=== PATIENT | male | born 1965 | race Caucasian/White ===

== ENCOUNTER 2017-11-24 21:13 | Emergency (ER) | payer SELFPAY ==
[~2017-11-24] VITALS: Ht 172.7 cm; Wt 113.4 kg
[2017-11-24 21:15] VITALS: BP 145/112
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
--- NOTE | 2017-11-24 21:20 | NUR ---
PATIENT BIB ALS TO ER BED 3.
[2017-11-24] MEDS ORDERED: IBUPROFEN 600 MG TAB PO ONE (22:25)
--- NOTE | 2017-11-25 00:20 | NUR ---
AWAITING DISCHARGE PAPERWORK FROM DR ANDERSEN
[2017-11-25 01:00] VITALS: BP 141/98
--- NOTE | 2017-11-25 01:00 | NUR ---
Patient discharged with v/s stable. Written and verbal after care instructions given and explained. Patient alert, oriented and verbalized understanding of instructions. Ambulatory with steady gait. All questions addressed prior to discharge. ID band removed. Patient advised to follow up with PMD. Rx of Ibuprofen and Flexeril given. Patient educated on indication of medication including possible reaction and side effects. Opportunity to ask questions provided and answered.
== END 2017-11-25 01:00 | disposition home or self-care (01) ==
LOC: MED 21:13
DX: S40.012A Contusion of left shoulder, initial encounter (principal); S00.93XA Contusion of unspecified part of head, initial encounter; S10.93XA Contusion of unspecified part of neck, initial encounter; S30.0XXA Contusion of lower back and pelvis, initial encounter; E11.9 Type 2 diabetes mellitus without complications; I10 Essential (primary) hypertension; V43.52XA Car driver injured in collision with other type car in traffic accident, initial encounter; Y93.89 Activity, other specified; Y92.89 Other specified places as the place of occurrence of the external cause; Y99.8 Other external cause status
CPT/HCPCS: 70450; 71045; 72125; 73000; 99284

== ENCOUNTER 2021-03-24 21:13 | Observation (INO) | payer OTHER, SELFPAY ==
[~2021-03-24] VITALS: Ht 167.6 cm; Wt 115.7 kg
[2021-03-24 21:47] VITALS: BP 156/100
--- NOTE | 2021-03-24 22:12 | NUR ---
PT TAKEN TO BED 12.
--- NOTE | 2021-03-24 22:32 | NUR ---
55 Y/O MALE BIB SELF, C/O ANURIA. PATIENT PRESENTS TO ED WITH PAIN TO BLADDER, RADIATING TO BACK AND HEADACHE. PT STATES FOR THE PAST 6HRS HE HAS NOT BEEN ABLE TO URINATE, ONLY A FEW DROPS OF BLOOD. HE ALSO STATES HE FEELS TEURGENCY TO URINATE BUT IS UNSUCCESSFUL. PT DENIES HX OF SAME OR TRAUMA. DENIES N/V/D; SKIN IS PINK/WARM/DRY; AAOX4 WITH EVEN AND STEADY GAIT; LUNGS CLEAR BL; HR EVEN AND REGULAR; PT DENIES ANY FEVER, CP, SOB, OR COUGH AT THIS TIME; PATIENT STATES PAIN OF 10/10 AT THIS TIME; VSS; PATIENT POSITIONED FOR COMFORT; HOB ELEVATED; BEDRAILS UP X1; BED DOWN. ER MD MADE AWARE OF PT STATUS. KINYARWANDA SPEAKER. HX: DM2, KIDNEY STONES, HLD NKA MEDS FOR MED HX BUT CANNOT REMEMBER THE NAMES.
[2021-03-25] MEDS ORDERED: MORPHINE SULFATE 2 MG/ML SYR ONE (00:13)
--- NOTE | 2021-03-25 00:30 | NUR ---
LABS AT BEDSIDE
[2021-03-25] MEDS ORDERED: cefTRIAXone 1,000 MG VIAL ONE (00:44)
[2021-03-25 00:48] LABS: BASOPHILS % (AUTO) 0.5 % (0.0-2.0); EOSINOPHILS # (AUTO) 0.1 K/uL (0-0.4); EOSINOPHILS % (AUTO) 1.3 % (0.0-4.0); HEMATOCRIT 40.5 % (36-52); HEMOGLOBIN 13.7 g/dL (12.0-18.0); LYMPHOCYTES # (AUTO) 1.5 K/uL (2.0-11.5); LYMPHOCYTES % (AUTO) 18.5 % (20.5-51.1); MEAN CORPUSCULAR HEMOGLOBIN 27 pg (27-31); MEAN CORPUSCULAR HGB CONC 34 g/dL (33-37); MEAN CORPUSCULAR VOLUME 80.2 fL (80-94); MONOCYTES # (AUTO) 0.7 K/uL (0.8-1.0); MONOCYTES % (AUTO) 8.5 % (1.7-9.3); NEUTROPHILS # (AUTO) 5.8 K/uL (1.8-7.7); NEUTROPHILS % (AUTO) 71.2 % (42.2-75.2); PLATELET COUNT (AUTO) 197 K/uL (140-450); RED BLOOD CELL COUNT(AUTO) 5.05 MIL/uL (4.20-6.10); RED CELL DISTRIBUTION WIDTH 15.3 % (11.6-13.7); WHITE BLOOD COUNT (AUTO) 8.2 K/uL (4.8-10.8)
[2021-03-25 01:02] LABS: ANION GAP 16.2 (8-16); CARBON DIOXIDE 25.4 mmol/L (21-32); CREATININE 1.2 mg/dL (0.6-1.3); POTASSIUM 4.6 mmol/L (3.5-5.1)
[2021-03-25 01:15] LABS: ALBUMIN 3.4 g/dL (3.4-5.0); TOTAL BILIRUBIN 0.4 mg/dL (0.0-1.0)
--- NOTE | 2021-03-25 01:19 | NUR ---
ULTRASOUND AT BEDSIDE
--- NOTE | 2021-03-25 02:50 | NUR ---
SOTO WITH [address] WAY IRRIGATION ESTABLISHED.
--- NOTE | 2021-03-25 03:13 | NUR ---
PT TAKEN TO CT
--- NOTE | 2021-03-25 03:31 | NUR ---
[facility]a falcon in [facility] - 03/25/21 at 0556 by MNINOCENTEJN PT IRRIGATION STARTED 2000 ML
--- NOTE | 2021-03-25 03:31 | NUR ---
PT STARTED IRRIGATION BY THREE WAY CATHETER. 3000 ML
[2021-03-25] MEDS ORDERED: MORPHINE SULFATE 2 MG/ML SYR IVP ONE (03:35)
--- NOTE | 2021-03-25 04:00 | NUR ---
400 ML IRRIGATED. SOTO CLOGGED. IRRIGATION DECLOGGING DONE BY REKHA. 10-15 BLOOD CLOTS REMOVED.
--- NOTE | 2021-03-25 05:00 | NUR ---
1000 ML IRRIGATED. IRRIGATION PERFORMED AND 20 BLOOD CLOTS REMOVED.
[2021-03-25] MEDS ORDERED: MORPHINE SULFATE 4 MG/ML SYR IVP ONE ×2 (05:05→09:50)
[2021-03-25] MEDS ORDERED: ONDANSETRON 4 MG/2 ML VIAL IVP ONE (05:05)
--- NOTE | 2021-03-25 07:23 | NUR ---
TRANSFER OF CARE REPORT GIVEN TO JOHNSON BUTT
--- NOTE | 2021-03-25 07:23 | NUR ---
REPORT RECEIVED FROM ELADIA BUTT FOR CONTINUITY OF CARE. PT IS A&OX3. IV SITE R HAND, INTACT, PATENT, GOOD BLOOD RETURN, SALINE LOCKED. SKIN INTACT WARM AND DRY. SOTO CATHETER IN PLACE. BLADDER IRRIGATION INFUSING. BRIGHT RED BLOOD NOTED IN SOTO. SAFETY PRECAUTIONS IN PLACE. WILL CONTINUE TO MONITOR.
--- NOTE | 2021-03-25 09:00 | NUR ---
URINE OUTPUT 1400 ML
--- NOTE | 2021-03-25 10:00 | NUR ---
PT C/O 12/04 PAIN. MEDICATED WITH MORPHINE
--- NOTE | 2021-03-25 10:42 | NUR ---
TOMÁS SWAB COLLECTED AND SENT TO LAB
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
--- NOTE | 2021-03-25 12:17 | NUR ---
PT AMBULATED TO RESTROOM STEADY GAIT
--- NOTE | 2021-03-25 12:18 | NUR ---
URINE OUTPUT 3000 ML
[2021-03-25] MEDS ORDERED: ONDANSETRON 4 MG/2 ML VIAL IVP PRN (12:45)
[2021-03-25] MEDS ORDERED: MORPHINE SULFATE 4 MG/ML SYR IVP PRN (12:45)
[2021-03-25] MEDS ORDERED: MAG SULF 2000 MG/WATER PREMIX 50 ML IV PRN (12:45)
[2021-03-25] MEDS ORDERED: HYDROcodone/APAP 5/325 MG 1 TAB TAB PO PRN (12:45)
[2021-03-25] MEDS ORDERED: MAGNESIUM OXIDE 400 MG TAB PO PRN (12:45)
[2021-03-25] MEDS ORDERED: KCL 20 MEQ/WATER INJ PREMIX 200 ML IV PRN (12:45)
[2021-03-25] MEDS ORDERED: POTASSIUM CHLORIDE 10 MEQ TABER PO PRN (12:45)
[2021-03-25] MEDS ORDERED: ACETAMINOPHEN 325 MG TAB PO PRN (12:45)
[2021-03-25] MEDS: NACL 0.9% 1,000 ML IV SCH (13:35)
--- NOTE | 2021-03-25 14:00 | NUR ---
DR CHAVEZ AT BEDSIDE EXAMINING PT
--- NOTE | 2021-03-25 16:00 | NUR ---
Patient resting comfortably in bed. Vital Signs within normal limits. Respirations even and unlabored.
--- NOTE | 2021-03-25 18:52 | NUR ---
PT PROVIDED WITH DINNER TRAY
--- NOTE | 2021-03-25 19:36 | NUR ---
Pt report given to SHASHANK Krishnamurthy RN. Transfer of care at this time.
--- NOTE | 2021-03-25 23:45 | NUR ---
PATIENT REPORT GIVEN TO [facility] NURSE JIE. PATIENT TRANSFERRED FROM ED TO ROOM 112A VIA WHEELCHAIR WITH EMT. PATIENT IN STABLE CONDITION WITH NO SIGNS OF ACUTE DISTRESS. AOX4.
[2021-03-26 00:20] VITALS: BP 125/72
--- NOTE | 2021-03-26 00:25 | NUR ---
PATIENT ADMITTED FROM ED TO [facility] VIA W/C WITH CHIEF COMPLAINT OF WORSENING SUPRAPUBIC PAIN. A&OX4 CITIZEN OF [place] SPEAKING ONLY. VITAL SIGNS TAKEN AND WNL. HEAD TO TOE ASSESSMENT COMPLETED WITH DAQUAN SUAREZ. TOLERATED WELL. ADMISSION CHARTING COMPLETED. MRSA OF LEFT AND RIGHT NARES COLLECTED. PATIENT IS ORIENTED TO CALL LIGHT, BED, PHONE, TELEVISION, BATHROOM, SMOKING POLICY, VISITING HOURS, AND ID BRACELET IS ON. BELONGINGS ON BEDSIDE. WHITE COMMUNICATION BOARD UPDATED. ALL SAFETY MEASURES IN PLACE. CALL LIGHT WITHIN REACH. WILL CONTINUE TO MONITOR.
--- NOTE | 2021-03-26 01:15 | NUR ---
HANG IVF PER MD ORDER. TOLERATED WELL. STABLE AND ASLEEP. CHEST IS RISING AND FALLING EVENLY. RESPIRATIONS EVEN AND UNLABORED WITH NO APPARENT S/SX OF ACUTE DISTRESS. WHITE COMMUNICATION BOARD UPDATED. ALL SAFETY MEASURES IN PLACE. CALL LIGHT WITHIN REACH. WILL CONTINUE TO MONITOR.
[2021-03-26] MEDS: NACL 0.9% 1,000 ML IV SCH ×2 (01:20→13:45)
--- NOTE | 2021-03-26 03:15 | NUR ---
CHECKED PATIENT. STABLE AND ASLEEP. CHEST IS RISING AND FALLING EVENLY. RESPIRATIONS EVEN AND UNLABORED WITH NO APPARENT S/SX OF ACUTE DISTRESS. WHITE COMMUNICATION BOARD UPDATED. ALL SAFETY MEASURES IN PLACE. CALL LIGHT WITHIN REACH. WILL CONTINUE TO MONITOR.
--- NOTE | 2021-03-26 03:39 | NUR ---
Patient's Plan of Care was discussed and reviewed with HOUSEHOLD REFRIGERATION MECHANIC: JIE CARRERA
[2021-03-26 04:00] VITALS: BP 128/80
--- NOTE | 2021-03-26 05:15 | NUR ---
EMPTIED PATIENT'S F/C. TOLERATED WELL. BLOOD CLOTS NOTED IN OUTPUT. PATIENT IS STABLE AND ASLEEP. CHEST IS RISING AND FALLING EVENLY. RESPIRATIONS EVEN AND UNLABORED WITH NO APPARENT S/SX OF ACUTE DISTRESS. WHITE COMMUNICATION BOARD UPDATED. ALL SAFETY MEASURES IN PLACE. CALL LIGHT WITHIN REACH. WILL CONTINUE TO MONITOR.
[2021-03-26 06:54] LABS: BASOPHILS % (AUTO) 0.4 % (0.0-2.0); EOSINOPHILS # (AUTO) 0.2 K/uL (0-0.4); EOSINOPHILS % (AUTO) 3.4 % (0.0-4.0); HEMATOCRIT 39.7 % (36-52); HEMOGLOBIN 13.2 g/dL (12.0-18.0); LYMPHOCYTES # (AUTO) 1.8 K/uL (2.0-11.5); LYMPHOCYTES % (AUTO) 26.5 % (20.5-51.1); MEAN CORPUSCULAR HEMOGLOBIN 27 pg (27-31); MEAN CORPUSCULAR HGB CONC 33 g/dL (33-37); MEAN CORPUSCULAR VOLUME 80.7 fL (80-94); MONOCYTES # (AUTO) 0.8 K/uL (0.8-1.0); MONOCYTES % (AUTO) 11.6 % (1.7-9.3); NEUTROPHILS % (AUTO) 58.1 % (42.2-75.2); PLATELET COUNT (AUTO) 198 K/uL (140-450); RED BLOOD CELL COUNT(AUTO) 4.91 MIL/uL (4.20-6.10); RED CELL DISTRIBUTION WIDTH 15.7 % (11.6-13.7); WHITE BLOOD COUNT (AUTO) 6.8 K/uL (4.8-10.8)
--- NOTE | 2021-03-26 07:15 | NUR ---
ENDORSED PATIENT TO MORNING SHIFT NURSE FOR CONTINUITY OF CARE. PATIENT IS STABLE.
--- NOTE | 2021-03-26 07:20 | NUR ---
PATIENT HAS BEEN SCREENED AND CATEGORIZED MODERATE NUTRITION RISK. PATIENT WILL BE SEEN WITHIN 3-5 DAYS OF ADMISSION. 03/28/21-03/30/21 BRITNEY DE MS, RDN
--- NOTE | 2021-03-26 07:25 | NUR ---
RECEIVED REPORT FROM PM SHIFT RV REPAIRER FOR CONTINUITY OF CARE. PT. RESTING IN THE BED. AWAKE. NO RESP. DISTRESS NOTED. ALL SAFETY MEASURES IN PLACE. WILL CONTINUE TO MONITOR THE PT.
[2021-03-26 07:28] LABS: ALBUMIN 3.3 g/dL (3.4-5.0); ANION GAP 12.6 (8-16); CARBON DIOXIDE 29.2 mmol/L (21-32); CREATININE 1.1 mg/dL (0.6-1.3); MAGNESIUM 2.3 mg/dL (1.8-2.4); POTASSIUM 4.8 mmol/L (3.5-5.1); TOTAL BILIRUBIN 0.4 mg/dL (0.0-1.0)
[2021-03-26 08:00] VITALS: BP 144/83
[2021-03-26] MEDS ORDERED: DOCUSATE SODIUM 100 MG GELCAP PO SCH (09:00)
--- NOTE | 2021-03-26 10:10 | NUR ---
DR. PATTON UROLOGIST CAME AND SEEN THE PT. SAID OK TO DISCHARGE THE PT. AND ALSO ORDERED TO GIVE IMEGIN CD OF CT TO PT. AND CT SCAN PAPER REPORT ALSO TO BE GIVEN . WILL CARRYOUT ORDER.
--- NOTE | 2021-03-26 10:20 | NUR ---
PT.C/O LOWER ABDOMINAL PAIN,07/04. ASSESED PT. FOR PAIN. MEDICATED WITH PO MEDICATION NORCO PRN ORDER.. CALL LIGHT WITHIN REACH. SAFETY MEASURES IN PLACE. WILL CONTINUE TO MONITOR THE PT.
--- NOTE | 2021-03-26 11:20 | NUR ---
REASSESSED PT. FOR EFFECTIVENESS OF PAIN MEDICATION. PT. DENIES PAIN AT THIS TIME.. PT. STABLE ON ROOM AIR. SAFETY MEASURES IN PLACE. WILL CONTINUE TO MONITOR THE PT.
--- NOTE | 2021-03-26 12:45 | NUR ---
PT. ALERT, ORIENTED. RESTING IN THE BED. NOT IN DISTRESS ON ROOM AIR. SAFETY MEASURES IN PLACE. WILL CONTINUE TO MONITIR THE PT.
--- NOTE | 2021-03-26 13:42 | NUR ---
RECEIVED DISCHARGE ORDER FROM MD. . INFORMED PATIENT. AND SPOKE WITH PT'S ANNALISA AND NOTIFY HER. SHE SAID SHE WILL COME TO SERVICE ORDER CLERK THE PT. WITHIN ONE HOUR. WILL PPROCESS THE DISCHARGE PROCEDURE.
[2021-03-26] MEDS ORDERED: ACET-1182 PO (13:46)
[2021-03-26 13:47] VITALS: BP 136/82
--- NOTE | 2021-03-26 14:19 | NUR ---
REQUESTED IMAGINE CT CD MD ORDERED. CD RECEIVED NOEW AND WILL GIVE TO THE PT. ON DISCHARGE.
--- NOTE | 2021-03-26 14:50 | NUR ---
PT'S ANNALISA CAME TO ROD PULLER AND COILER THE PT. PT. STABLE UPON DISCHARGE. NO ACUTE DISTRESS ON ROOM AIR. PT. DISCHARGED WITH FOLY CATHETER PER MD .(DR. PATTON).DROPPED PT. TO THE CAR BY WALK. PT. DISCHARGED @[id number].
== END 2021-03-26 14:50 | disposition home or self-care (01) ==
LOC: MED 21:13 → MTU 03-25 12:45
PROVIDERS: ADMIT Hospitalist; ATTEND Hospitalist
DX: R31.9 Hematuria, unspecified (principal); Z20.822 Contact with and (suspected) exposure to COVID-19; I10 Essential (primary) hypertension; E11.9 Type 2 diabetes mellitus without complications; E78.5 Hyperlipidemia, unspecified; N17.9 Acute kidney failure, unspecified; I25.10 Atherosclerotic heart disease of native coronary artery without angina pectoris; N28.89 Other specified disorders of kidney and ureter; Z79.899 Other long term (current) drug therapy
CPT/HCPCS: 36415; 74176; 76770; 80053; 83735; 85025; 87081; 87426; 96361; 96365; 96375; 96376; 99285; G0378; J0696; J2270; J2405; Q0092